=== PATIENT | male | born 1960 | race Hispanic/Latino ===

== ENCOUNTER 2016-08-02 07:34 | Day surgery (SDC) | payer OTHER ==
[~2016-08-02] VITALS: Ht 167.6 cm; Wt 99.8 kg
[~2016-08-02 07:34] MED LIST: ASPI-973 PO; EPIN0.3P2 IJ; PSYL660P17 PO; Sodium Chloride LOK Flush 10 mL Syringe IV PRN; fentaNYL-PF 50 mCg/mL 2 mL Inj IVPUSH PRN
[2016-08-02 07:59] VITALS: BP 116/82; PULSE 77; RESP 16; O2SAT 97
[2016-08-02] MEDS: 0.9% Sodium Chloride 1,000 ML IV SCH ×2 (08:00→09:15)
[2016-08-02 09:22] VITALS: BP 100/79; PULSE 88; RESP 15; O2SAT 92
[2016-08-02 09:31] VITALS: BP 92/79; PULSE 86; RESP 15; O2SAT 92
[2016-08-02 09:41] VITALS: BP 99/71; PULSE 84; RESP 15; O2SAT 96
--- NOTE | 2016-08-02 10:12 | ENDO ---
[address] [address] ENDOSCOPY PROCEDURE PATIENT: MILANA GALVAN : 1960 MR#: [id number] ADMIT: 08/02/2016 JOB ID: [id number] PROCEDURE: Esophagogastroduodenoscopy. INDICATION: Gastroesophageal reflux. ASA CLASSIFICATION: 2. MALLAMPATI SCORE: 2. MEDICATIONS: 1. Versed 6 mg. 2. Fentanyl 150 mcg. INSTRUMENT USED: GIF H180-J. PROCEDURE DETAILS: After informed consent was obtained, the patient was brought to the GI suite, where he was placed on oxygen via nasal cannula and monitored with continuous pulse oximeter, telemetry, and blood pressure monitoring. A time-out was performed. Then, he was placed in a left lateral decubitus position and medications were administered for sedation. A bite block was placed. The standard esophagogastroduodenoscopy scope was then inserted through the bite block and advanced under direct visualization to the second portion of the duodenum without difficulty. FINDINGS: 1. Normal appearing duodenal bulb, first and second portion. 2. Normal appearing pylorus. In the antrum at around the 7 to 8 o'clock position there were 2 ulcers that appeared to be clean based with surrounding mucosa which was erythematous. The ulcer is measured approximately 2-3 mm each. Multiple biopsies were obtained of the ulcers. 3. The mucosa in the antrum and body of stomach had erythematous appearance suggestive of gastritis, multiple biopsies were obtained. 4. Retroflexed views in the gastric body revealed a normal-appearing cardia and fundus. 5. The GE junction was at approximately 39 cm, however from 39 cm extending up to 37 cm there was ulceration noted as well as several tongues of salmon-colored mucosa suggestive of ulcerative esophagitis. Proximal to 37 cm mucosa otherwise appeared unremarkable. IMPRESSION: 1. Two clean based small antral ulcers. 2. Gastritis. 3. LA class B ulcerative esophagitis. RECOMMENDATIONS: 1. Will recommend ranitidine 150 mg twice a day as patient has allergies to PPIs from patient's prior experience. 2. Recommended weight loss. 3. Recommended avoiding NSAIDs. 4. Reflux precautions. COMPLICATIONS: None. ESTIMATED BLOOD LOSS: Less than 5 mL.
--- NOTE | 2016-08-02 10:19 | ENDO ---
[address] [address] ENDOSCOPY PROCEDURE PATIENT: MILANA GALVAN : 1960 MR#: [id number] ADMIT: 08/02/2016 JOB ID: [id number] PROCEDURE PERFORMED: Colonoscopy. INDICATION: Hematochezia. Please see above for ASA classification, Mallampati score, and medications. INSTRUMENT USED: PCF H-180AL PREP QUALITY: Fair. PROCEDURE DETAILS: After completion of the EGD exam, the patient was turned and then a digital rectal exam was performed with palpation of the prostate was unremarkable. The colonoscope was then inserted into the rectum and advanced under direct visualization to the cecum, which was identified by the presence of the ileocecal valve and appendiceal orifice. Once the cecum was reached, the colonoscope was withdrawn back in the rectum. Mucosa and lumen were examined. In the rectum, retroflexion was performed. Following retroflexion, remaining air in the rectum was suctioned, and procedure was completed. FINDINGS: 1. In the ascending colon, there was an approximately 4-5 mm sessile polyp that was removed with a cold snare. 2. In the transverse colon, there was approximately 5-6 mm sessile polyp that was removed with a hot snare. 3. In the descending colon, there was an approximately 6 mm sessile polyp that was removed with a hot snare. 4. Large internal hemorrhoids were noted as the scope was being withdrawn from the rectum. IMPRESSION: 1. Ascending colon polyp. 2. Transverse polyp. 3. Descending polyp. 4. Internal hemorrhoids. RECOMMENDATIONS: 1. Avoid NSAIDs and anticoagulants. 2. Stool softeners as needed. 3. Consider trial of Anusol HC suppositories if bleeding persists. 4. Repeat colonoscopy pending polyp pathology results. COMPLICATIONS: None. ESTIMATED BLOOD LOSS: Less than 5 mL.
--- NOTE | 2016-08-05 10:02 | PATH ---
SURGICAL PATHOLOGY Attending Physician:Katia Stuart CASE STATUS: Signed Out PATIENT NAME: MILANA GALVAN PID: [id number] : 1960 DATE COLLECTED:08/02/2016 17:52 SPECIMEN: 1: Stomach, Antrum, Biopsy 2: Gastric, Biopsy 3: Colon, Biopsy 4: Colon, Biopsy 5: Colon, Biopsy CLINICAL HISTORY: 1. ANTRAL ULCER BXS 2. GASTRIC BXS 3. TRANSVERSE COLON POLYP 4. ASCENDING COLON POLYP 5. DESCENDING COLON POLYP FINAL DIAGNOSIS: 1.ANTRAL ULCER BIOPSIES: GASTRIC ANTRAL MUCOSA WITH FOCAL EROSION Negative for Helicobacter organisms. Negative for intestinal metaplasia. Negative for dysplasia and malignancy. 2.GASTRIC BIOPSIES: BODY-TYPE MUCOSA WITH NO DIAGNOSTIC ALTERATIONS. Negative for Helicobacter organisms. Negative for intestinal metaplasia. Negative for dysplasia and malignancy. 3.TRANSVERSE COLON POLYP: INFLAMMATORY POLYP. Negative for dysplasia and malignancy. 4.ASCENDING COLON POLYP: NO COLONIC TISSUE IDENTIFIED. 5.DESCENDING COLON POLYP. INFLAMMATORY POLYP. ICD10 CODE K29.00 K51.4 GROSS DESCRIPTION: The specimen is received in five formalin filled containers labeled with the patient's name. 1). The specimen is sublabeled "antral ulcer" and consists of 2 portions of tissue which aggregate to 0.3 x 0.3 x 0.2 CM. The specimen is entirely submitted in cassette 1A. 2). The specimen is sublabeled "gastric" and consists of 2 portions of tissue which aggregate to 0.2 x 0.2 x 0.2 CM. The specimen is entirely submitted in cassette 2A. 3). The specimen is sublabeled "transverse polyp" and consists of 2 portions of tissue which aggregate to 0.4 x 0.4 x 0.4 CM. The specimen is entirely submitted in cassette 3A. 4). The specimen is sublabeled "ascending polyp" and consists of scant possible fragments of tissue. Specimen will be forwarded to cytology for cell block preparation. 5). The specimen is sublabeled "descending colon" and consists of a 0.4 x 0.3 x 0.2 CM portion of tissue which is entirely submitted in cassette 5A. 08/02/2016 DAC MICRO DESCRIPTION: See diagnosis. ICD-9 CODES: CPT CODES: 1: 10867 2: 70264 3: 75725 4: 20713 5: 13797 Electronically Signed Out Jessica Westfall MD [facility] [address], [place] [address] Technical component performed at [facility], [address], [place], [address]
== END 2016-08-02 23:59 | disposition home or self-care (01) ==
LOC: END 07:34
PROVIDERS: ATTEND Internal Medicine Gastroenterology
DX: K92.1 Melena (principal); K63.5 Polyp of colon; K64.8 Other hemorrhoids; K25.9 Gastric ulcer, unspecified as acute or chronic, without hemorrhage or perforation; K29.70 Gastritis, unspecified, without bleeding; K22.10 Ulcer of esophagus without bleeding; K21.9 Gastro-esophageal reflux disease without esophagitis; K59.00 Constipation, unspecified; Z79.82 Long term (current) use of aspirin
CPT/HCPCS: 43239; 45385; 99153; G0500; J2250; J3010; J7030

== ENCOUNTER 2016-10-03 09:03 | Day surgery (SDC) | payer OTHER ==
[~2016-10-03] VITALS: Ht 170.2 cm; Wt 103.0 kg
[~2016-10-03 09:03] MED LIST changes: +0.9% Sodium Chloride 1,000 ML IV SCH
[2016-10-03] MEDS ORDERED: OMEP20TA86 PO (10:01)
[2016-10-03 10:02] VITALS: BP 124/84; PULSE 74; RESP 16; O2SAT 98
[2016-10-03 11:00] VITALS: BP 102/88; PULSE 80; RESP 16; O2SAT 93
[2016-10-03 11:10] VITALS: BP 125/85; PULSE 79; RESP 16; O2SAT 97
[2016-10-03 11:20] VITALS: BP 116/79; PULSE 77; RESP 16; O2SAT 97
--- NOTE | 2016-10-03 17:05 | ENDO ---
[address] [address] ENDOSCOPY PROCEDURE PATIENT: MILANA GALVAN : 1960 MR#: [id number] ADMIT: 10/03/2016 JOB ID: [id number] DATE: 10/03/2016 PROCEDURE: Esophagogastroduodenoscopy. INDICATIONS: Antral ulcers. The patient's ASA classification is 2, Mallampati score is 2. MEDICATIONS: 1. Versed 4 mg. 2. Fentanyl 75 mcg. INSTRUMENT USED: GIF H 180 J. PROCEDURE DETAILS: After informed consent was obtained, the patient was brought into the GI suite, where he was placed on oxygen via nasal cannula and monitored with continuous pulse oximeter, telemetry, and blood pressure monitoring. A time-out was performed. Then, he was placed in a left lateral decubitus position and medications were administered for sedation. A bite block was placed. The standard EGD scope was inserted through the bite block and advanced under direct visualization to the second portion of the duodenum. FINDINGS: 1. Normal-appearing duodenal bulb, first and second portion. 2. Normal-appearing pylorus. 3. In the antrum, where he had two previously seen ulcers, these ulcers were not seen on today's exam. 4. The gastric body and mucosa appeared normal. 5. Retroflexed views in the gastric body revealed a normal-appearing cardia and fundus. 6. The GE junction was at approximately 40 cm. and arising up to 38 cm the mucosa was ulcerated consistent with ulcerative esophagitis. Multiple random biopsies were obtained. The remainder of the esophagus was otherwise unremarkable. IMPRESSION: LA class B ulcerative esophagitis. Otherwise, normal exam to second portion of the duodenum. RECOMMENDATIONS: 1. Recommend ranitidine 150 mg twice a day as the patient is unable to tolerate PPI daily. 2. Reflux precautions. 3. Weight loss encouraged. COMPLICATIONS: None. ESTIMATED BLOOD LOSS: Less than 5 mL.
--- NOTE | 2016-10-04 15:43 | PATH ---
SURGICAL PATHOLOGY Attending Physician:Katia Stuart CASE STATUS: Signed Out PATIENT NAME: MILANA GALVAN PID: [id number] : 1960 DATE COLLECTED:10/03/2016 21:28 SPECIMEN: 1: Gastric, Biopsy 2: Esophagus, Biopsy CLINICAL HISTORY: 1). RANDOM GASTRIC BIOPSY, RULE OUT H.PYLORI 2). DISTAL ESOPHAGUS BIOPSY FINAL DIAGNOSIS: 1. Random Gastric Biopsy: Portions of gastric body-type mucosa with mild chronic gastritis. No definite H. pylori organisms identified by H&E stain. Immunohistochemistry studies pending; results will be reported as an addendum. Negative for intestinal metaplasia, dysplasia, and malignancy. 2. Distal Esophagus, Biopsy: Portions of squamocolumnar junctional mucosa with no diagnostic abnormality. Negative for intestinal metaplasia, dysplasia, and malignancy. ICD10: K29.7 GROSS DESCRIPTION: The specimen is received in two formalin filled containers labeled with the patient's name. 1). The specimen is labeled "random gastric" and consists of 2 portions of tissue which aggregate to 0.4 x 0.4 x 0.2 CM. The specimen is entirely submitted in cassette 1A. 2). The specimen is labeled "distal esophagus" and consists of 4 tiny portions of tissue which aggregate to 0.3 x 0.3 x 0.2 CM. The specimen is entirely submitted in cassette 2A. 10/03/2016VT ICD-9 CODES: CPT CODES: 1: 15846, 23687 2: 82990 PROCEDURE/ADDENDA: Addendum SPI Addendum Diagnosis 1. Gastric Biopsy: Negative for H. pylori organisms by immunohistochemistry studies. Addendum Comment {Not Entered} Electronically Signed Out Pamela Osuna MD Electronically Signed Out Pamela Osuna MD [facility], [place] [address] Technical component performed at [facility], [facility] [address], [place], [address]
== END 2016-10-03 23:59 | disposition home or self-care (01) ==
LOC: END 09:03
PROVIDERS: ATTEND Internal Medicine Gastroenterology
DX: K29.50 Unspecified chronic gastritis without bleeding (principal); K22.10 Ulcer of esophagus without bleeding; K21.9 Gastro-esophageal reflux disease without esophagitis; K59.00 Constipation, unspecified; Z79.82 Long term (current) use of aspirin
CPT/HCPCS: 43239; G0500; J2250; J3010; J7030